=== PATIENT | female | born 2000 | race Caucasian/White ===

== ENCOUNTER 2021-05-04 09:16 | Emergency (ER) | payer MEDICAID ==
[~2021-05-04] VITALS: Ht 157.5 cm; Wt 69.4 kg
[2021-05-04 09:23] VITALS: BP 124/87
--- NOTE | 2021-05-04 09:33 | PHYS DOC ---
Past History Past Medical History: No Pertinent History Alcohol Use: None General Adult EDM: Chief Complaint: VAGINAL BLEEDING HPI: HPI: 21-year-old G1 at approximately 3 weeks gestational age coming in for vaginal bleeding since yesterday. Patient states she has had some suprapubic cramping but not isolated to one side or the other. Denies any blood clots or tissue loss. Is unsure of her blood type. Patient states she was seen by her flooring machine feeder and had a blood test and urine test done to confirm her . No other complaints, otherwise been well. Review of Systems: Review of Systems: All other systems within normal limits except for as noted in the HPI Physical Exam: PE: Constitutional: Well developed, well nourished, no acute distress, non-toxic appearance. [] HENT: Normocephalic, atraumatic, bilateral external ears normal, nose normal. [] Eyes: PERRLA, conjunctiva normal, no discharge. [] Neck: No rigidity, supple, no stridor. [] Cardiovascular: Regular rate and rhythm, brisk cap refill [] Lungs & Thorax: Non labored symmetric respirations, no tachypnea or respiratory distress [] Abdomen: Soft, nondistended. Skin: Warm, dry, no erythema, no rash. [] Back: Unremarkable Extremities: No deformities, range of motion grossly intact, no lower extremity edema [] Neurologic: Alert and oriented X 3, no focal deficits noted. [] Psychologic: Affect normal, judgement normal, mood normal. [] Current Patient Data: Labs: RUN DATE: 05/04/21 [facility] LAB *LIVE* PAGE 1 RUN TIME: 1123 Specimen Inquiry PATIENT: APOLINAR BRAVO ACCT: [id number] LOC: [facility] U: [id number] AGE/SX: 21/F ROOM: RE05/04/[address]: RICHARD ARREGUIN MD : 2000 BED: DIS: STATUS: REG ER TLOC: -- SPEC #: [id number] HUNTER: 05/04/21 STATUS: COMP REQ #: [id number] RECD: 05/04/[address] [facility] [address]: RICHARD ARREGUIN MD SOURCE: VAGINAL ENTR: 05/04/[address]: JOSE F CHRISTIANSON MD SPDESC: ORDERED: WET PREP COMMENTS: Has specimen been collected/obtained? Y Procedure Result WET PREP Final YEAST NONE SEEN TRICHOMONAS NONE SEEN CLUE CELLS NONE SEEN WBCS NONE PRESENT RBCS FEW SQUAMOUS EPS FEW END OF REPORT Vital Signs: Vital Signs Date Time Temp Pulse Resp B/P (MAP) Pulse Ox O2 Delivery O2 Flow Rate FiO2 05/04/21 09:23 97.1 15 124/87 (99) 98 Room Air EKG: EKG: [] Radiology/Procedures: Radiology/Procedures: [] Heart Score: C/O Chest Pain: No Risk Factors: Risk Factors: DM, Current or recent (<one month) smoker, HTN, HLP, family history of CAD, obesity. Risk Scores: Score 0 - 3: 2.5% MACE over next 6 weeks - Discharge Home Score 4 - 6: 20.3% MACE over next 6 weeks - Admit for Clinical Observation Score 7 - 10: 72.7% MACE over next 6 weeks - Early Invasive Strategies Course & Med Decision Making: Course & Med Decision Making Pertinent Labs and Imaging studies reviewed. (See chart for details) [] Anthony Disclaimer: Anthony Disclaimer: This electronic medical record was generated, in whole or in part, using a voice recognition dictation system. Departure Departure: Impression: Primary Impression: Vaginal bleeding in patient after first trimester Disposition: HOME / SELF CARE / HOMELESS Condition: STABLE Referrals: JOSE F CHRISTIANSON MD (PCP) Patient Instructions: Vaginal Bleeding During , First Trimester Additional Instructions: Pelvic rest. Nothing in vagina until cleared by CONVEYOR SYSTEM DISPATCHER. Follow-up with your primary care for repeat quantitative beta-hCG in 48 hours. Call today for an appointment. Return to emergency department for any symptoms such as feeling like you are going to faint or right or left-sided abdominal pain associated with bleeding. Take [id number] vitamin. Your blood type is a positive. RICHARD ARREGUIN MD May 04, 2021 09:33
[2021-05-04 09:59] LABS: BASO % 1 % (0-3); EOS # 0.2 x10^3/uL (0.0-0.7); EOS % 2 % (0-3); HEMATOCRIT 39.9 % (36.0-47.0); HEMOGLOBIN 13.3 g/dL (12.0-15.5); LYMPH # 3.1 x10^3/uL (1.0-4.8); LYMPH % 30 % (24-48); MEAN CORPUSCULAR HEMOGLOBIN 30 pg (25-35); MEAN CORPUSCULAR HGB CONC 33 g/dL (31-37); MEAN CORPUSCULAR VOLUME 89 fL (79-100); MONO # 1.1 x10^3/uL (0.0-1.1); MONO % 10 % (0-9); NEUT % 58 % (31-73); PLATELET COUNT 279 x10^3/uL (140-400); RED BLOOD COUNT 4.48 x10^6/uL (3.50-5.40); RED CELL DISTRIBUTION WIDTH 13.5 % (11.5-14.5); WHITE BLOOD COUNT 10.5 x10^3/uL (4.0-11.0)
[2021-05-04 10:36] LABS: BACTERIA,URINE FEW /HPF (0-FEW); BILIRUBIN,URINE SMALL (NEG); CLARITY,URINE CLOUDY; COLOR,URINE AMBER; GLUCOSE,URINE NEG (NEG); NITRITE,URINE NEG (NEG); RBC,URINE TNTC /HPF (0-2); SQUAMOUS EPITHELIAL CELL,UR FEW /LPF; UROBILINOGEN,URINE 0.2 mg/dL (0.2 mg/dL)
[2021-05-05 16:10] LABS: CHLAMYDIA PROBE Negative (Negative)
== END 2021-05-04 12:06 | disposition home or self-care (01) ==
LOC: ER 09:16
DX: O46.91 Antepartum hemorrhage, unspecified, first trimester (principal); R10.30 Lower abdominal pain, unspecified; Z3A.01 Less than 8 weeks gestation of pregnancy
CPT/HCPCS: 36415; 81001; 84702; 85025; 86900; 86901; 87086; 87491; 87591; 99283; Q0111

== ENCOUNTER 2022-03-13 12:20 | Emergency (ER) | payer MEDICAID ==
[~2022-03-13] VITALS: Ht 154.9 cm; Wt 71.9 kg
[2022-03-13] MEDS ORDERED: MORPHINE SULFATE 2 MG/ML DISP.SYRIN. IV ONE (12:45)
[2022-03-13] MEDS ORDERED: IV NORMAL SALINE 1,000ML 1,000 ML IV ONE (12:45)
[2022-03-13] MEDS ORDERED: ONDANSETRON PF 4 MG/2 ML VIAL. IVP ONE (12:45)
--- NOTE | 2022-03-13 12:58 | PHYS DOC ---
Past History Past Medical History: No Pertinent History Past Surgical History: No Surgical History Alcohol Use: None General Adult EDM: Chief Complaint: ABDOMINAL PAIN HPI: HPI: 22-year-old female presents with lower abdominal pain. The patient states that she was diagnosed with a UTI last week. She took 5 days of Macrobid but her symptoms did not completely resolve. Her last dose was a couple of days ago and the pain has increased. She feels like she has urinary frequency and dysuria. She also states being constipated lately. She is worried that her UTI did not go away and could get worse. Denies fever or chills. Review of Systems: Review of Systems: Constitutional: Denies fever or chills Eyes: Denies change in visual acuity HENT: Denies nasal congestion or sore throat Respiratory: Denies cough or shortness of breath Cardiovascular: Denies chest pain or edema GI: Lower abdominal pain, nausea, vomiting, bloody stools or diarrhea : Dysuria, increased urinary frequency Musculoskeletal: Denies back pain or joint pain Integument: Denies rash Neurologic: Denies headache, focal weakness or sensory changes Endocrine: Denies polyuria or polydipsia Lymphatic: Denies swollen glands Psychiatric: Denies depression or anxiety Current Medications: Current Meds: Current Medications Medications (Trade) Dose Ordered Sig/Liliana Start Time Stop Time Status Last Admin Dose Admin Iohexol (Omnipaque 300 Mg/ml) 75 ml 1X ONCE 03/13/22 13:00 03/13/22 13:01 UNV Morphine Sulfate (Morphine 2mg Syringe) 2 mg 1X ONCE 03/13/22 12:45 03/13/22 12:47 DC Ondansetron HCl (Zofran) 4 mg 1X ONCE 03/13/22 12:45 03/13/22 12:47 DC Sodium Chloride 1,000 ml @ 1,000 mls/hr 1X ONCE 03/13/22 12:45 03/13/22 13:44 Allergies: Allergies: Allergies Coded Allergies Type Severity Reaction Last Updated Verified No Known Drug Allergies 03/13/22 No Physical Exam: PE: Constitutional: Well developed, well nourished, no acute distress, non-toxic appearance. [] HENT: Normocephalic, atraumatic, bilateral external ears normal, oropharynx moist, no oral exudates, nose normal. [] Eyes: PERRLA, EOMI, conjunctiva normal, no discharge. [] Neck: Normal range of motion, no tenderness, supple, no stridor. [] Cardiovascular: Heart rate regular rhythm, no murmur [] Lungs & Thorax: Bilateral breath sounds clear to auscultation [] Abdomen: Bowel sounds normal, soft, no tenderness, no masses, no pulsatile masses. [] Skin: Warm, dry, no erythema, no rash. [] Back: No tenderness, no CVA tenderness. [] Extremities: No tenderness, no cyanosis, no clubbing, ROM intact, no edema. [] Neurologic: Alert and oriented X 3, normal motor function, normal sensory function, no focal deficits noted. [] Psychologic: Affect normal, judgement normal, mood anxious. [] Current Patient Data: Labs: Laboratory Tests Test 03/13/22 12:02 POC Urine HCG, Qualitative hcg positive (Negative) Vital Signs: Vital Signs Date Time Temp Pulse Resp B/P (MAP) Pulse Ox O2 Delivery O2 Flow Rate FiO2 03/13/22 12:28 98.3 81 19 100/61 (74) 100 Room Air EKG: EKG: [] Radiology/Procedures: Radiology/Procedures: [] Heart Score: C/O Chest Pain: N/A Risk Factors: Risk Factors: DM, Current or recent (<one month) smoker, HTN, HLP, family history of CAD, obesity. Risk Scores: Score 0 - 3: 2.5% MACE over next 6 weeks - Discharge Home Score 4 - 6: 20.3% MACE over next 6 weeks - Admit for Clinical Observation Score 7 - 10: 72.7% MACE over next 6 weeks - Early Invasive Strategies Course & Med Decision Making: Course & Med Decision Making Pertinent Labs and Imaging studies reviewed. (See chart for details) The patient is . She has not had a menstrual cycle in several months. Patient tells me that she was in April and had a spontaneous miscarriage in May. She has not had a menstrual cycle since that time. She also has a urinary tract infection. Since she just finished Macrobid I will treat her with a gram of Rocephin in the ER followed by Keflex for home. The patient's beta HCG is just over 500. Ultrasound will not rule in or out ectopic . The patient is calm and comfortable in the room. I have advised her that it is very important to follow up with OB for serial HCG testing and a future ultrasound. She states verbal understanding. She is stable for discharge at this time. [] Anthony Disclaimer: Anthony Disclaimer: This electronic medical record was generated, in whole or in part, using a voice recognition dictation system. Departure Departure: Impression: Primary Impression: Additional Impression: UTI in Disposition: HOME / SELF CARE / HOMELESS Condition: STABLE Referrals: JOSE F CHRISTIANSON MD (PCP) Scripts Cephalexin (CEPHALEXIN) 500 Mg Tablet 1 TAB PO TID for UTI for 4 Days, #12 TAB Prov: WALTER AGUAYO DO 03/13/22 WALTER AGUAYO DO March 13, 2022 12:58
[2022-03-13] MEDS ORDERED: IOHEXOL 300 MG/ML 75 ML VIAL. IV ONE (13:00)
[2022-03-13 13:16] LABS: BACTERIA,URINE MANY /HPF (0-FEW); CLARITY,URINE CLOUDY; COLOR,URINE YELLOW; GLUCOSE,URINE NEG (NEG); NITRITE,URINE POS (NEG); RBC,URINE 20-40 /HPF (0-2); SQUAMOUS EPITHELIAL CELL,UR FEW /LPF; UROBILINOGEN,URINE 0.2 mg/dL (0.2 mg/dL); WBC,URINE TNTC /HPF (0-4)
[2022-03-13] MEDS ORDERED: cefTRIAXone SODIUM 1 GM VIAL ONE (13:28)
[2022-03-13] MEDS ORDERED: IV NORMAL SALINE 50ML 50 ML ONE (13:29)
[2022-03-13] MEDS ORDERED: CEPH500T PO ×2 (14:46→14:49)
[2022-03-13 15:05] VITALS: BP 128/81
== END 2022-03-13 15:05 | disposition home or self-care (01) ==
LOC: ER 12:25
DX: O23.41 Unspecified infection of urinary tract in pregnancy, first trimester (principal); N39.0 Urinary tract infection, site not specified; Z3A.00 Weeks of gestation of pregnancy not specified
CPT/HCPCS: 36415; 81001; 81025; 84702; 87077; 87086; 87186; 96365; 96366; 96375; 99284; J0696; J2405; J7030; 99285